=== PATIENT | male | born 1945 | race Two or more races ===

== ENCOUNTER 2025-10-12 10:29 | Inpatient (IN) | payer OTHER, MEDICAID ==
[~2025-10-12] VITALS: Ht 170.2 cm; Wt 87.1 kg
--- NOTE | 2025-10-12 11:11 | ED.PDOC ---
History of Present Illness HPI Comments 80 year old male with PMHx ESRD, HTN, HLD, DM presents to the ED with a chief complaint of clogged Parminder catheter onset 3 days. Patient states he was advised to come to ED due to clogged Parminder catheter after last dialysis was yesterday. Goes to dialysis Sunday, , Sunday, due to holidays he went Sunday, Sunday and Sunday, since Sunday was told catheter was clogged. Denies fever, chills, nausea, vomiting, diarrhea, headache, dizizness, chest pain, shortness of breath. No other symptoms or modifying factors present at this time. Chief Complaint: Tube Replacement Time Seen by MD: 11:00 Reviewed Notes: Medications, Allergies Allergies: Coded Allergies: Tetracycline (Verified Allergy, Severe, 10/12/25) Information Source: Patient, Relative Mode of Arrival: Ambulatory Severity: Moderate Timing: Days Duration: Since onset Prehospital treatment: None Past Medical History PAST MEDICAL HISTORY: DM, ESRD, High Lipids, HTN Surgical History: Denies all surgeries Family History Family History: Reviewed,noncontributory to illness, No family hx of Cancer, No family hx of DM, No family hx of Heart kennedi, No family hx of HTN, No family hx ofKidney kennedi, No family hx of Liver kennedi, No family hx of Lung kennedi, No family hx of Stroke Social History Smoker: Non-Smoker Alcohol: Denies ETOH Use Drugs: Denies Drug Use Lives In: Home Constitutional: denies: chills, diaphoresis, fatigue, fever, malaise, sweats, weakness, others EENTM: denies: blurred vision, double vision, ear bleeding, ear discharge, ear drainage, ear pain, ear ringing, eye pain, eye redness, hearing loss, mouth pain, mouth swelling, nasal discharge, nose bleeding, nose congestion, nose pain, photophobia, tearing, throat pain, throat swelling, voice changes, others Respiratory: denies: cough, hemoptysis, orthopnea, SOB at rest, shortness of breath, SOB with excertion, stridor, wheezing, others Cardiovascular: denies: chest pain, dizzy spells, diaphoresis, Dyspnea on exertion, edema, irregular heart beat, left arm pain, lightheadedness, palpitations, PND, syncope, others Gastrointestinal: denies: abdomen distended, abdominal pain, blood streaked bowels, constipated, diarrhea, dysphagia, difficulty swallowing, hematemesis, m james, nausea, poor appetite, poor fluid intake, rectal bleeding, rectal pain, vomiting, others Genitourinary: denies: burning, dysuria, flank pain, frequency, hematuria, incontinence, penile discharge, penile sore, pain, testicle pain, testicle swelling, urgency, others Neurological: denies: dizziness, fainting, headache, left sided numbness, left sided weakness, numbness, paresthesia, pre-existing deficit, right sided numbness, right sided weakness, seizure, speech problems, tingling, tremors, weakness, others Musculoskeletal: denies: back pain, gout, joint pain, joint swelling, muscle pain, muscle stiffness, neck pain, others Integumetry: denies: bruises, change in color, change in hair/nails, dryness, laceration, lesions, lumps, rash, wounds, others Allergic/Immunocompromised: denies: Difficulty Healing, Frequent Infections, Hives, Itching, others Hematologic/Lymphatic: denies: anemia, blood clots, easy bleeding, easy bruising, swollen glands, others Endocrine: denies: excessive hunger, excessive sweating, excessive thirst, excessive urination, flushing, intolerance to cold, intolerance to heat, unexplained weight gain, unexplained weight loss, others Psychiatric: denies: anxiety, bipolar disorder, depression, hopeless, panic disorder, schizophrenia, sleepless, suicidal, others All Other Systems: Reviewed and Negative Physical Exam General Appearance: Moderate Distress, Normal HEENT: Normal ENT Inspection, Pharynx Normal, TMs Normal Neck: Full Range of Motion, Non-Tender, Normal, Normal Inspection Respiratory: Chest Non-Tender, Lungs Clear, No Accessory Muscle Use, No Respiratory Distress, Normal Breath Sounds Cardiovascular: No Edema, No JVD, No Murmur, No Gallop, Normal Peripheral Pulses, Regular Rate/Rhythm Breast Exam: Deferred Gastrointestinal: No Organomegaly, Non Tender, No Pulsatile Mass, Normal Bowel Sounds, Soft Genitalia: Deferred Pelvic: Deferred Rectal: Deferred Extremities: No calf tenderness, Normal capillary refill, Normal inspection, Normal range of motion, Non-tender, No pedal edema Musculoskeletal : Apperance: Normal Neurologic: Alert, area captain II-XII nml as Tested, No Motor Deficits, Normal Affect, Normal Mood, No Sensory Deficits Cerebellar Function: Normal Reflexes: Normal Skin: Dry, Normal Color, Warm Peripheral Pulses: 3+ Radial (R), 3+ Radial (L) Lymphatic: No Adenopathy Was a procedure done? Was a procedure done?: No Differential Dx Considerations may include: Chronic kidney disease X-Ray, Labs, Meds, VS Vital Signs Date Time Temp Pulse Resp B/P (MAP) Pulse Ox O2 Delivery O2 Flow Rate FiO2 10/12/25 10:31 97.9 102 15 156/76 99 97.9 Lab Test 10/12/25 11:19 Range/Units White Blood Count 7.3 4.4-10.8 10^3/uL Red Blood Count 4.55 4.5-5.90 10^6/uL Hemoglobin 13.2 L 13.5-17.5 g/dL Hematocrit 39.5 L 41.0-53.0 % Mean Corpuscular Volume 86.8 80.0-100.0 fL Mean Corpuscular Hemoglobin 28.9 28.0-32.0 pg Mean Corpuscular Hemoglobin Concent 33.3 32.0-36.0 g/dL Red Cell Distribution Width 15.9 H 11.8-14.3 % Platelet Count 313 140-450 10^3/uL Mean Platelet Volume 7.4 6.9-10.8 fL Neutrophils (%) (Auto) 40.5 37.0-80.0 % Lymphocytes (%) (Auto) 38.4 10.0-50.0 % Monocytes (%) (Auto) 11.3 0.0-12.0 % Eosinophils (%) (Auto) 8.3 H 0.0-7.0 % Basophils (%) (Auto) 1.5 0.0-2.0 % Neutrophils # (Auto) 2.9 1.6-8.6 10 ^3/uL Lymphocytes # (Auto) 2.8 0.4-5.4 10 ^3/uL Monocytes # (Auto) 0.8 0-1.3 10 ^3/uL Eosinophils # (Auto) 0.6 0-0.8 10 ^3/uL Basophils # (Auto) 0.1 0-0.2 10 ^3/uL Nucleated Red Blood Cells 0.0 % Sodium Level 140 136-145 mmol/L Potassium Level 4.6 3.5-5.1 mmol/L Chloride Level 103 98-107 mmol/L Carbon Dioxide Level 25 20-31 mmol/L Anion Gap 12 5-15 Blood Urea Nitrogen Pending Creatinine Pending Glomerular Filtration Rate Calc Pending BUN/Creatinine Ratio Pending Serum Glucose Pending Calcium Level 8.9 8.7-10.4 mg/dL Patient alert. Blood pressure elevated. Came in because of the malfunction of dialysis catheter. Answering questions. Saturation pristine on room air. He is comfortable. Was given clonidine. Explained to the patient. Continue monitoring. [place] [id number] Ph: [phone] DIAGNOSTIC IMAGING Diagnostic Imaging Report : [id number] Signed PATIENT: BERNIE BRAND ACCT: [id number] UNIT: [id number] : 1945 LOC: ER ROOM / BED: / AGE / SEX: 80 / M ADM STATUS: REG ER SERVICE 1101 ORDERING PHYSICIAN: ALFONSO DEWITT MD PROCEDURE(s): CXRP - CHEST PORTABLE REASON: sob ORDER NUMBER(s): [id number], ACCESSION NUMBER(s): [id number] CHEST RADIOGRAPH Indication: sob Technique: Single frontal view of the chest was obtained COMPARISON: None FINDINGS: Lines and Tubes: Tunneled right central venous catheter in satisfactory position. Lungs: Increased interstital prominence. This may represent pulmonary vascular congestion and/or viral pneumonia. Pleura: No effusion. No pneumothorax. Cardiomediastinal contours: Unremarkable Bones: Unremarkable IMPRESSION: Increased pulmonary vascular congestion and/or viral pneumonia. ATED BY: GORDON GUEVARA MD DICTATED DATE/TIME: 10/12/25 1141 SIGNED BY: GORDON GUEVARA MD SIGNED DATE/TIME: 10/12/25 1141 CC: Time of 1ST Reevaluation: 11:30 Reevaluation 1ST: Unchanged Patient Education/Counseling: Diagnosis, Treatment, Prognosis Family Education/Counseling: No Family Present SEPSIS Sepsis Screen Date sepsis recognized/suspect: Oct 12, 2025 Time Sepsis recognized/suspect: 1034 Recent Procedure: No On Antibiotic Therapy: No Respiratory Rate >20: No Heart Rate >90: Yes Temp<36 C (96.8 F) or >38.3 C: No SBP <90 or MAP <65 mmHG: No New Acute Mental Status Change: No Is the patient on CPAP, BIPAP,: No Physician Orders Chest Portable (10/12/25 11:01) Basic Metabolic Panel (10/12/25 11:01) Vital Signs Date Time Temp Pulse Resp B/P (MAP) Pulse Ox O2 Delivery O2 Flow Rate FiO2 10/12/25 10:31 97.9 102 15 156/76 99 97.9 Laboratory Tests Test 10/12/25 11:19 White Blood Count 7.3 10^3/uL (4.4-10.8) Departure 1 Departure Time of Disposition: 11:23 Impression: Primary Impression: Hypertensive urgency Additional Impression: Encounter for dialysis catheter care Disposition: ADMITTED INPATIENT Admit to: Med Surg Condition: Guarded Critical Care Note Critical Care Time?: No Stability Stability form required: No Heart Score Heart Score: Heart Score Response (Comments) Value History N/A 0 EKG N/A 0 Age N/A 0 Risk Factors N/A 0 Troponin N/A 0 Total 0 I personally scribed for ALFONSO DEWITT MD ([email or web address]) on 10/12/25 at 11:11. Electronically submitted by Catalina Sanchez ([email or web address]). I personally scribed for ALFONSO DEWITT MD ([email or web address]) on 10/12/25 at 12:03. Electronically submitted by Catalina Sanchez ([email or web address]). ALFONSO DEWITT MD Oct 12, 2025 11:11
--- NOTE | 2025-10-12 11:43 | DVH ---
CHEST RADIOGRAPH Indication: sob Technique: Single frontal view of the chest was obtained COMPARISON: None FINDINGS: Lines and Tubes: Tunneled right central venous catheter in satisfactory position. Lungs: Increased interstital prominence. This may represent pulmonary vascular congestion and/or viral pneumonia. Pleura: No effusion. No pneumothorax. Cardiomediastinal contours: Unremarkable Bones: Unremarkable IMPRESSION: Increased pulmonary vascular congestion and/or viral pneumonia.
[2025-10-12 11:51] LABS: Hematocrit 39.5 % (41.0-53.0); Hemoglobin 13.2 g/dL (13.5-17.5); Mean Corpuscular Hemoglobin 28.9 pg (28.0-32.0); Mean Corpuscular Volume 86.8 fL (80.0-100.0); Nucleated Red Blood Cells % 0.0 %
[2025-10-12 11:54] LABS: Chloride 103 mmol/L (98-107); Potassium 4.6 mmol/L (3.5-5.1); Sodium 140 mmol/L (136-145)
[2025-10-12 11:56] LABS: Anion Gap 12 (5-15); Calcium 8.9 mg/dL (8.7-10.4); Carbon Dioxide 25 mmol/L (20-31)
[2025-10-12 12:01] LABS: BUN/Creatinine Ratio 8.0 (10.0-20.0)
[2025-10-12 12:14] LABS: Blood Urea Nitrogen 26 mg/dL (9-23); Glucose 257 mg/dL (74-106)
[2025-10-12 13:43] LABS: Urine Protein, UAD 2+ (Negative)
[2025-10-12] MEDS ORDERED: ACETAMINOPHEN 500 MG TAB or CAP PO PRN (16:00)
[2025-10-12] MEDS ORDERED: HYDROcodone-ACET 5/325MG TAB PO PRN (16:00)
[2025-10-12] MEDS ORDERED: DEXTROSE (50%) 50ML SYRG IV PRN (16:00)
[2025-10-12] MEDS: CARVEDILOL 12.5 MG TAB PO ONE (16:00)
--- NOTE | 2025-10-12 16:00 | DVHHPRES ---
History of Present Illness Resident Creating Document: FACUNDO FONG RESIDENT History of Present Illness 80-year-old Fijian-speaking male patient presented to the ER with a chief complaint of a clogged tunneled catheter for hemodialysis. Patient reports that he goes to [facility] for hemodialysis Sunday//Sunday, last hemodialysis yesterday and he was told during the past 2 visits that has a hemodialysis catheter needs to be changed. On my evaluation, patient denies fever, chills, shortness of breaths, nausea vomiting, chest pain. He is tachycardic but sinus. Past medical history: Hypertension, diabetes mellitus type 2, ESRD on HD with [facility] Sunday//Sunday Home medications: Patient can not remember Social history: Denies smoking/drinking/drug use, lives with family Patient seen and examined in ER lobby. Right tunneled catheter noted. Review of Systems Allergies: Coded Allergies: Tetracycline (Verified Allergy, Severe, 10/12/25) Exam Vital Signs Vital Signs Date Time Temp Pulse Resp B/P (MAP) Pulse Ox O2 Delivery O2 Flow Rate FiO2 10/12/25 15:00 97.6 92 16 153/81 (105) 98 97.6 General Appearance: Alert, Oriented X3, Cooperative, No acute distress HEENT: Mucous membr. moist/pink Respiratory: Other (Bilateral crackles heard basilar region) Cardiovascular: Normal S1, Normal S2 Abdominal: Normal bowel sounds, Soft Extremities: Other (Mild swelling 1+ pitting) Skin: No significant lesion Neuro: Normal speech Psych/Mental Status: Mental status NL, Mood NL Labs/Xrays Labs Test 10/12/25 12:40 10/12/25 11:19 Range/Units Urine Color Light-yellow Yellow Urine Clarity Clear Clear Urine pH 7.0 5.0-9.0 Urine Specific [place] 1.016 1.001-1.035 Urine Protein 2+ H Negative Urine Ketones Negative Negative Urine Blood Negative Negative /uL Urine Nitrite Negative Negative Urine Bilirubin Negative Negative Urine Urobilinogen Normal Negative mg/dL Urine Leukocyte Esterase Negative Negative /uL Urine RBC 1 0 - 3 /hpf Urine Microscopic WBC 1 0-3 /HPF Urine Squamous Epithelial Cells Few <5 /hpf Urine Bacteria None seen None Seen /hpf Urine Glucose 1+ H Normal mg/dL White Blood Count 7.3 4.4-10.8 10^3/uL Red Blood Count 4.55 4.5-5.90 10^6/uL Hemoglobin 13.2 L 13.5-17.5 g/dL Hematocrit 39.5 L 41.0-53.0 % Mean Corpuscular Volume 86.8 80.0-100.0 fL Mean Corpuscular Hemoglobin 28.9 28.0-32.0 pg Mean Corpuscular Hemoglobin Concent 33.3 32.0-36.0 g/dL Red Cell Distribution Width 15.9 H 11.8-14.3 % Platelet Count 313 140-450 10^3/uL Mean Platelet Volume 7.4 6.9-10.8 fL Neutrophils (%) (Auto) 40.5 37.0-80.0 % Lymphocytes (%) (Auto) 38.4 10.0-50.0 % Monocytes (%) (Auto) 11.3 0.0-12.0 % Eosinophils (%) (Auto) 8.3 H 0.0-7.0 % Basophils (%) (Auto) 1.5 0.0-2.0 % Neutrophils # (Auto) 2.9 1.6-8.6 10 ^3/uL Lymphocytes # (Auto) 2.8 0.4-5.4 10 ^3/uL Monocytes # (Auto) 0.8 0-1.3 10 ^3/uL Eosinophils # (Auto) 0.6 0-0.8 10 ^3/uL Basophils # (Auto) 0.1 0-0.2 10 ^3/uL Nucleated Red Blood Cells 0.0 % Sodium Level 140 136-145 mmol/L Potassium Level 4.6 3.5-5.1 mmol/L Chloride Level 103 98-107 mmol/L Carbon Dioxide Level 25 20-31 mmol/L Anion Gap 12 5-15 Blood Urea Nitrogen 26 H 9-23 mg/dL Creatinine 3.27 H 0.700-1.30 mg/dL Glomerular Filtration Rate Calc 18 >90 mL/min BUN/Creatinine Ratio 8.0 L 10.0-20.0 Serum Glucose 257 H 74-106 mg/dL Calcium Level 8.9 8.7-10.4 mg/dL SEPSIS Sepsis Screen Date sepsis recognized/suspect: Oct 12, 2025 Time Sepsis recognized/suspect: 1034 Recent Procedure: No On Antibiotic Therapy: No Respiratory Rate >20: No Heart Rate >90: Yes Temp<36 C (96.8 F) or >38.3 C: No SBP <90 or MAP <65 mmHG: No New Acute Mental Status Change: No Is the patient on CPAP, BIPAP,: No Physician Orders Chest Portable (10/12/25 11:01) Vital Signs Date Time Temp Pulse Resp B/P (MAP) Pulse Ox O2 Delivery O2 Flow Rate FiO2 10/12/25 15:00 97.6 92 16 153/81 (105) 98 97.6 10/12/25 12:44 98.2 98 17 146/83 (104) 96 98.2 10/12/25 10:31 97.9 102 15 156/76 99 97.9 Laboratory Tests Test 10/12/25 11:19 White Blood Count 7.3 10^3/uL (4.4-10.8) Assessment/Plan Assessment/Plan Dysfunctional tunneled hemodialysis catheter ESRD on mtylnbfcabmi-[id number]-Hyzkirp//Sunday Diabetic nephropathy Type 2 diabetes mellitus Hypertension Dyslipidemia Plan: Recommendation: Dr. Page Dysfunctional tunneled catheter likely from fibrin sheath versus intradural thrombus. No signs of infection at this time Follow up with Mag and phos, [facility] consulted, PT/INR, blood cultures Consider trial of Alteplase, if catheter remains nonfunctional, consider IR for catheter exchange Patient will be admitted to med surge unit Monitor electrolytes and volume status Strict I&Os Renal diet Heparin for DVT prophylaxis Plan discussed with the patient in which all questions have been answered Case discussed with Dr. Page Plan discussed with: Patient Visit Coding STANDARD RES Billing Provider: MORAIMA MENG MD Date of Service if different f: Oct 12, 2025 Common Visit Codes: 02362-[id number] INP/OBS CARE (HIGH) FACUNDO FONG RESIDENT Oct 12, 2025 16:00
[2025-10-12 16:22] LABS: Alanine Aminotransferase 24 U/L (7-40); Albumin 4.5 g/dL (3.2-4.8); Alkaline Phosphatase 93 U/L (46-116); Magnesium 1.7 mg/dL (1.6-2.6); Total Protein 7.0 g/dL (5.7-8.2)
[2025-10-12 16:29] LABS: Bilirubin, Direct < 0.1 mg/dL (<0.3); Bilirubin, Total 0.2 mg/dL (0.2-1.0)
[2025-10-12] MEDS: InsuLIN REG 1unit/0.01ml Soln (100units/ml) SC SCH (17:00)
[2025-10-12] MEDS: ACCU-CHEK COMFORT CURVE STRIP VI SCH (17:00)
[2025-10-12] MEDS: CATHFLO ACTIVASE (ALTEPLASE) 2 MG VIAL IV ONE (19:50)
[2025-10-12 21:00] VITALS: BP 132/78; PULSE 87; RESP 16; TEMP 98.3; O2SAT 96
[2025-10-12] MEDS: CARVEDILOL 12.5 MG TAB PO SCH (22:46)
[2025-10-12 22:52] VITALS: BP 132/78; PULSE 87; RESP 18; TEMP 98.3; O2SAT 96
[2025-10-13] VITALS (12 sets, daily range): BP systolic 114–172; BP diastolic 61–87; PULSE 68–88; RESP 10–23; TEMP 97.6–98.7; O2SAT 92–97
[2025-10-13 05:32] LABS: Amphetamine Screen, Urine Neg (NEGATIVE); Barbiturate Scree,Urine Neg (NEGATIVE); Benzodiazephine Screen, Urine Neg (NEGATIVE); Cocaine Screen, Urine Neg (NEGATIVE); Opiate Scree,Urine Neg (NEGATIVE); Phencyclidine Screen, Urine Neg (NEGATIVE)
[2025-10-13 05:33] LABS: Cannabinoid Screen, Urine Neg (NEGATIVE)
[2025-10-13] MEDS: LEVOTHYROXINE SODIUM 50 MCG TAB PO SCH (06:40)
[2025-10-13 07:37] LABS: Hematocrit 34.6 % (41.0-53.0); Hemoglobin 11.7 g/dL (13.5-17.5); Mean Corpuscular Hemoglobin 29.4 pg (28.0-32.0); Mean Corpuscular Volume 86.6 fL (80.0-100.0); Nucleated Red Blood Cells % 0.3 %
[2025-10-13 07:43] LABS: INR 1.08 (0.9-1.15); Partial Thromboplastin Time 27.0 SEC (24.5-34.5); Prothrombin Time 11.4 sec (9.3-11.8)
[2025-10-13 07:47] LABS: Alanine Aminotransferase 17 U/L (7-40); Albumin 3.9 g/dL (3.2-4.8); Alkaline Phosphatase 76 U/L (46-116); Anion Gap 11 (5-15); BUN/Creatinine Ratio 9.0 (10.0-20.0); Carbon Dioxide 26 mmol/L (20-31); Chloride 105 mmol/L (98-107); Magnesium 1.8 mg/dL (1.6-2.6); Potassium 4.9 mmol/L (3.5-5.1); Sodium 142 mmol/L (136-145); Total Protein 6.4 g/dL (5.7-8.2)
[2025-10-13 07:48] LABS: Bilirubin, Total 0.2 mg/dL (0.2-1.0); Blood Urea Nitrogen 32 mg/dL (9-23); Calcium 8.5 mg/dL (8.7-10.4); Glucose 113 mg/dL (74-106)
[2025-10-13] MEDS: HEPARIN SODIUM (PORCINE) 5000 UNITS/ML 1ML VIAL ONE (09:43)
[2025-10-13] MEDS: MIDAZOLAM HCL 2MG/2ML 2ml VIAL (1mg/ml) ONE (09:44)
[2025-10-13] MEDS: fentaNYL CITRATE 100 MCG/2 ML VL ONE (09:44)
[2025-10-13] MEDS: LIDOCAINE 2%HCL (LOCAL ANESTH.) INJ 20ML MDV ONE (09:45)
[2025-10-13] MEDS ORDERED: SODIUM CHL 0.9% 1000 ML BAG XX ONE (12:15)
--- NOTE | 2025-10-13 14:44 | DVHINCON2 ---
Date of service: Oct 13, [address] Grimaldo Reason for Consultation End-stage renal disease History of Present Illness 80-year-old patient with significant history of end-stage renal disease requiring hemodialysis on Sunday with last dialysis day before yesterday at [facility], hypertension, hypothyroidism who has had issues with clotting of the dialysis catheter requiring tPA as an outpatient , needing with clogged tunneled dialysis catheter. Laboratory data revealed normal kalemia, hypertension. He denies otherwise fever chills chest pain nausea vomiting. He was tachycardic on admission. Chest x-ray showed mild bowel pulmonary vascular congestion. Past Medical History Hypertension, end-stage renal disease, hypothyroidism Past Surgical History Dialysis dialysis catheter placement Allergies: Coded Allergies: Tetracycline (Verified Allergy, Severe, 10/12/25) Current Medications Current Medications Medications (Trade) Dose Ordered Sig/Chata Route PRN Reason Start Time Stop Time Status Last Admin Acetaminophen (Tylenol Tablet Or Capsule) 500 mg Q4HPRN PRN PO MILD PAIN (1-3 PAIN SCALE) 10/12/25 16:00 Acetaminophen/ Hydrocodone Bitart ([place] 5/325MG Tab) 1 tab Q4HPRN PRN PO SEVERE PAIN (7-10 PAIN SCALE) 10/12/25 16:00 Diagnostic Test (Pha) (Accu-Chek Comfort Curve T) 1 strip ACHS 10/12/25 17:00 10/13/25 11:29 Insulin Human Regular (InsuLIN R) ACHS SC 10/12/25 17:00 10/13/25 11:31 Dextrose 50 ml UD PRN IV Blood Sugar LESS THAN 60 10/12/25 16:00 Levothyroxine Sodium (Synthroid Tablet) 50 mcg QAM@0600 PO 10/13/25 06:00 10/13/25 06:40 Carvedilol (Coreg Tablet) 12.5 mg Q12HR PO 10/12/25 22:00 10/13/25 11:32 Social History He denies smoking alcohol or drug abuse Review of Systems HEENT: Oral mucosa dry Neck no JVD Cardiovascular: Denies for chest pain denies orthopnea or PND Respiratory: Denies cough or shortness of breath Gastrointestinal: Denies for nausea vomiting Musculoskeletal: Denies myalgias Neurological: Denies focal weakness Dermatological: Denies any rash The rest of the review of systems were reviewed pertinent positives and pertinent negatives are as per HPI up to 12 points review of systems H&P Exam Vital Signs/I&O Vital Sign Date Time Temp Pulse Resp B/P (MAP) Pulse Ox O2 Delivery O2 Flow Rate FiO2 10/13/25 12:58 97.9 72 18 148/87 (107) 96 97.9 10/12/25 22:52 Room Air* 0 21 Intake and Output 10/12/25 10/13/25 19:00 07:00 Intake Total 0 ml Balance 0 ml Intake Oral 0 ml # Voids 2 Physical Exam HEENT: No evidence of JVD, no oral ulcers. Pulmonary: Lungs are clear on auscultation bilaterally Cardiovascular S1-S2, no S3 or S4 Abdomen: Bowel sounds positive, soft no rebound tenderness Skin: No rash Neurological: Alert, oriented, no focal weakness HD catheter right upper chest tunneled Labs/Diagnostic Data Labs/Diagnostic Data Laboratory Tests Test 10/13/25 11:28 10/13/25 06:38 10/13/25 06:11 10/13/25 04:44 Range/Units POC Glucose 239 H 122 H 70-106 mg/dl White Blood Count 6.2 4.4-10.8 10^3/uL Red Blood Count 3.99 L 4.5-5.90 10^6/uL Hemoglobin 11.7 L 13.5-17.5 g/dL Hematocrit 34.6 #L 41.0-53.0 % Mean Corpuscular Volume 86.6 80.0-100.0 fL Mean Corpuscular Hemoglobin 29.4 28.0-32.0 pg Mean Corpuscular Hemoglobin Concent 33.9 32.0-36.0 g/dL Red Cell Distribution Width 16.1 H 11.8-14.3 % Platelet Count 276 140-450 10^3/uL Mean Platelet Volume 7.5 6.9-10.8 fL Neutrophils (%) (Auto) 48.4 37.0-80.0 % Lymphocytes (%) (Auto) 25.6 10.0-50.0 % Monocytes (%) (Auto) 15.0 H 0.0-12.0 % Eosinophils (%) (Auto) 9.9 H 0.0-7.0 % Basophils (%) (Auto) 1.1 0.0-2.0 % Neutrophils # (Auto) 3.0 1.6-8.6 10 ^3/uL Lymphocytes # (Auto) 1.6 0.4-5.4 10 ^3/uL Monocytes # (Auto) 0.9 0-1.3 10 ^3/uL Eosinophils # (Auto) 0.6 0-0.8 10 ^3/uL Basophils # (Auto) 0.1 0-0.2 10 ^3/uL Nucleated Red Blood Cells 0.3 % Prothrombin Time 11.4 9.3-11.8 sec Prothrombin Time INR 1.08 0.9-1.15 Activated Partial Thromboplast Time 27.0 24.5-34.5 SEC Sodium Level 142 136-145 mmol/L Potassium Level 4.9 3.5-5.1 mmol/L Chloride Level 105 98-107 mmol/L Carbon Dioxide Level 26 20-31 mmol/L Anion Gap 11 5-15 Blood Urea Nitrogen 32 H 9-23 mg/dL Creatinine 3.55 H 0.700-1.30 mg/dL Glomerular Filtration Rate Calc 17 >90 mL/min BUN/Creatinine Ratio 9.0 L 10.0-20.0 Serum Glucose 113 #H 74-106 mg/dL Hemoglobin A1c 7.7 H <5.7 % A1C Calcium Level 8.5 L 8.7-10.4 mg/dL Magnesium Level 1.8 1.6-2.6 mg/dL Total Bilirubin 0.2 0.2-1.0 mg/dL Aspartate Amino Transferase (AST) 19 13-40 U/L Alanine Aminotransferase (ALT) 17 7-40 U/L Alkaline Phosphatase 76 46-116 U/L Total Protein 6.4 5.7-8.2 g/dL Albumin 3.9 3.2-4.8 g/dL Vitamin B12 Level 492 211-911 pg/mL Vitamin D 25-Hydroxy 44.7 30.0-100 ng/mL Thyroid Stimulating Hormone (TSH) 4.80 H 0.55-4.78 uIU/mL Urine Opiates Screen Neg NEGATIVE Urine Fentanyl Screen Neg NEGATIVE Urine Barbiturates Screen Neg NEGATIVE Urine Phencyclidine Screen Neg NEGATIVE Urine Amphetamines Screen Neg NEGATIVE Urine Benzodiazepines Screen Neg NEGATIVE Urine Cocaine Screen Neg NEGATIVE Urine Cannabinoids Screen Neg NEGATIVE Test 10/12/25 22:44 10/12/25 19:20 10/12/25 16:49 10/12/25 12:40 Range/Units POC Glucose 184 H 219 H 70-106 mg/dl Lactic Acid Level 2.0 0.4-2.0 mmol/L Urine Color Light-yellow Yellow Urine Clarity Clear Clear Urine pH 7.0 5.0-9.0 Urine Specific [place] 1.016 1.001-1.035 Urine Protein 2+ H Negative Urine Ketones Negative Negative Urine Blood Negative Negative /uL Urine Nitrite Negative Negative Urine Bilirubin Negative Negative Urine Urobilinogen Normal Negative mg/dL Urine Leukocyte Esterase Negative Negative /uL Urine RBC 1 0 - 3 /hpf Urine Microscopic WBC 1 0-3 /HPF Urine Squamous Epithelial Cells Few <5 /hpf Urine Bacteria None seen None Seen /hpf Urine Glucose 1+ H Normal mg/dL Test 10/12/25 11:19 Range/Units White Blood Count 7.3 4.4-10.8 10^3/uL Red Blood Count 4.55 4.5-5.90 10^6/uL Hemoglobin 13.2 L 13.5-17.5 g/dL Hematocrit 39.5 L 41.0-53.0 % Mean Corpuscular Volume 86.8 80.0-100.0 fL Mean Corpuscular Hemoglobin 28.9 28.0-32.0 pg Mean Corpuscular Hemoglobin Concent 33.3 32.0-36.0 g/dL Red Cell Distribution Width 15.9 H 11.8-14.3 % Platelet Count 313 140-450 10^3/uL Mean Platelet Volume 7.4 6.9-10.8 fL Neutrophils (%) (Auto) 40.5 37.0-80.0 % Lymphocytes (%) (Auto) 38.4 10.0-50.0 % Monocytes (%) (Auto) 11.3 0.0-12.0 % Eosinophils (%) (Auto) 8.3 H 0.0-7.0 % Basophils (%) (Auto) 1.5 0.0-2.0 % Neutrophils # (Auto) 2.9 1.6-8.6 10 ^3/uL Lymphocytes # (Auto) 2.8 0.4-5.4 10 ^3/uL Monocytes # (Auto) 0.8 0-1.3 10 ^3/uL Eosinophils # (Auto) 0.6 0-0.8 10 ^3/uL Basophils # (Auto) 0.1 0-0.2 10 ^3/uL Nucleated Red Blood Cells 0.0 % Sodium Level 140 136-145 mmol/L Potassium Level 4.6 3.5-5.1 mmol/L Chloride Level 103 98-107 mmol/L Carbon Dioxide Level 25 20-31 mmol/L Anion Gap 12 5-15 Blood Urea Nitrogen 26 H 9-23 mg/dL Creatinine 3.27 H 0.700-1.30 mg/dL Glomerular Filtration Rate Calc 18 >90 mL/min BUN/Creatinine Ratio 8.0 L 10.0-20.0 Serum Glucose 257 H 74-106 mg/dL Calcium Level 8.9 8.7-10.4 mg/dL Phosphorus Level 3.8 2.4-5.1 mg/dL Magnesium Level 1.7 1.6-2.6 mg/dL Total Bilirubin 0.2 0.2-1.0 mg/dL Direct Bilirubin < 0.1 <0.3 mg/dL Aspartate Amino Transferase (AST) 24 13-40 U/L Alanine Aminotransferase (ALT) 24 7-40 U/L Alkaline Phosphatase 93 46-116 U/L Total Protein 7.0 5.7-8.2 g/dL Albumin 4.5 3.2-4.8 g/dL Thyroid Stimulating Hormone (TSH) 5.60 H 0.55-4.78 uIU/mL Microbiology Date/Time Source Procedure Growth Status 10/13/25 00:20 Nose MRSA Screen - Final Complete Chest x-ray with pulmonary vascular congestion Assessment Assessment: 1. End-stage renal disease on hemodialysis TTS 2. Malfunction of the right upper chest tunneled dialysis catheter. 3. Pulmonary vascular congestion 4. Hypertension 5. Hypothyroidism Plan: Exchange hemodialysis catheter by IR appreciated. Dialysis to make sure dialysis catheter is working. Resume antihypertensive meds Continue levothyroxine Fluid restriction less than 1 L per day Patient can be discharged after hemodialysis today. Thank you very much Plan discussed with: Patient ANNALISA MEDLEY MD Oct 13, 2025 14:44
--- NOTE | 2025-10-13 17:43 | DVHDSRES ---
Discharge Summary Date of Admission Resident Creating Document: LEX PARRA RESIDENT Oct 12, 2025 at 15:59 Date of Discharge: Oct 13, 2025 Labs/Diagnostic Data: Laboratory Results Test 10/13/25 11:28 10/13/25 06:38 10/13/25 04:44 10/12/25 16:49 POC Glucose 239 mg/dl (70-106) White Blood Count 6.2 10^3/uL (4.4-10.8) Red Blood Count 3.99 10^6/uL (4.5-5.90) Hemoglobin 11.7 g/dL (13.5-17.5) Hematocrit 34.6 % (41.0-53.0) Mean Corpuscular Volume 86.6 fL (80.0-100.0) Mean Corpuscular Hemoglobin 29.4 pg (28.0-32.0) Mean Corpuscular Hemoglobin Concent 33.9 g/dL (32.0-36.0) Red Cell Distribution Width 16.1 % (11.8-14.3) Platelet Count 276 10^3/uL (140-450) Mean Platelet Volume 7.5 fL (6.9-10.8) Neutrophils (%) (Auto) 48.4 % (37.0-80.0) Lymphocytes (%) (Auto) 25.6 % (10.0-50.0) Monocytes (%) (Auto) 15.0 % (0.0-12.0) Eosinophils (%) (Auto) 9.9 % (0.0-7.0) Basophils (%) (Auto) 1.1 % (0.0-2.0) Neutrophils # (Auto) 3.0 10 ^3/uL (1.6-8.6) Lymphocytes # (Auto) 1.6 10 ^3/uL (0.4-5.4) Monocytes # (Auto) 0.9 10 ^3/uL (0-1.3) Eosinophils # (Auto) 0.6 10 ^3/uL (0-0.8) Basophils # (Auto) 0.1 10 ^3/uL (0-0.2) Nucleated Red Blood Cells 0.3 % Prothrombin Time 11.4 sec (9.3-11.8) Prothrombin Time INR 1.08 (0.9-1.15) Activated Partial Thromboplast Time 27.0 SEC (24.5-34.5) Sodium Level 142 mmol/L (136-145) Potassium Level 4.9 mmol/L (3.5-5.1) Chloride Level 105 mmol/L (98-107) Carbon Dioxide Level 26 mmol/L (20-31) Anion Gap 11 (5-15) Blood Urea Nitrogen 32 mg/dL (9-23) Creatinine 3.55 mg/dL (0.700-1.30) Glomerular Filtration Rate Calc 17 mL/min (>90) BUN/Creatinine Ratio 9.0 (10.0-20.0) Serum Glucose 113 mg/dL (74-106) Hemoglobin A1c 7.7 % A1C (<5.7) Calcium Level 8.5 mg/dL (8.7-10.4) Magnesium Level 1.8 mg/dL (1.6-2.6) Total Bilirubin 0.2 mg/dL (0.2-1.0) Aspartate Amino Transferase (AST) 19 U/L (13-40) Alanine Aminotransferase (ALT) 17 U/L (7-40) Alkaline Phosphatase 76 U/L (46-116) Total Protein 6.4 g/dL (5.7-8.2) Albumin 3.9 g/dL (3.2-4.8) Vitamin B12 Level 492 pg/mL (211-911) Vitamin D 25-Hydroxy 44.7 ng/mL (30.0-100) Thyroid Stimulating Hormone (TSH) 4.80 uIU/mL (0.55-4.78) Urine Opiates Screen Neg (NEGATIVE) Urine Fentanyl Screen Neg (NEGATIVE) Urine Barbiturates Screen Neg (NEGATIVE) Urine Phencyclidine Screen Neg (NEGATIVE) Urine Amphetamines Screen Neg (NEGATIVE) Urine Benzodiazepines Screen Neg (NEGATIVE) Urine Cocaine Screen Neg (NEGATIVE) Urine Cannabinoids Screen Neg (NEGATIVE) Lactic Acid Level 2.0 mmol/L (0.4-2.0) Test 10/12/25 12:40 10/12/25 11:19 Urine Color Light-yellow (Yellow) Urine Clarity Clear (Clear) Urine pH 7.0 (5.0-9.0) Urine Specific [place] 1.016 (1.001-1.035) Urine Protein 2+ (Negative) Urine Ketones Negative (Negative) Urine Blood Negative /uL (Negative) Urine Nitrite Negative (Negative) Urine Bilirubin Negative (Negative) Urine Urobilinogen Normal mg/dL (Negative) Urine Leukocyte Esterase Negative /uL (Negative) Urine RBC 1 /hpf (0 - 3) Urine Microscopic WBC 1 /HPF (0-3) Urine Squamous Epithelial Cells Few /hpf (<5) Urine Bacteria None seen /hpf (None Seen) Urine Glucose 1+ mg/dL (Normal) Phosphorus Level 3.8 mg/dL (2.4-5.1) Direct Bilirubin < 0.1 mg/dL (<0.3) Other Laboratory Tests 10/13/25 06:38 Brief Hx & Hospital Course: 80-year-old Bengali-speaking male patient presented to the ER with a chief complaint of a clogged tunneled catheter for hemodialysis. Patient reports that he goes to [facility] for hemodialysis Sunday//Sunday, last hemodialysis yesterday and he was told during the past 2 visits that has a hemodialysis catheter needs to be changed. On my evaluation, patient denies fever, chills, shortness of breaths, nausea vomiting, chest pain. He is tachycardic but sinus. Past medical history: Hypertension, diabetes mellitus type 2, ESRD on HD with [facility] Sunday//Sunday Home medications: Patient can not remember Social history: Denies smoking/drinking/drug use, lives with family Patient seen and examined in ER lobby. Right tunneled catheter noted. Hospital course: Patient admitted due to malfunction tunnel catheter for HD. Patient currently on hemodialysis TTS and followed with [facility] nephrology. X- ray chest shows increased pulmonary vasculature congestion. Exchange hemodialysis catheter by IR done on 10/13/2025. Nephrology consult appreciated and recommended dialysis to make sure dialysis catheter is working, resume antihypertensive medication and fluid restriction 1 L per day. Patient seen and evaluated in bedside and during examination on 10/13/2025, patient denies any fever, SOB, chest pain, headache, cough or any focal weakness. Patient advised to continue hemodialysis as scheduled resume home medication. Patient is hemodynamically stable for discharge. Patient has received maximum benefit from inpatient treatment. Time was given to answer patient's questions and concerns in layman terms and explained by RN. Patient verbalized understanding and agreed with treatment and follow-up. Patient was recommended to return to ER if he experiences any worsening symptoms not limited to current symptoms. Follow-up with PCP and outpatient continuity clinic Sunday morning within 2 weeks after discharge. Follow-up outpatient private Nephrology. Physical examination Constitutional: No: Fever, Chills, Sweats, Weakness, Malaise, Other Eyes: No: Pain, Vision change, Conjunctivae inflammation, Eyelid inflammation, Other, Redness ENT: No: Ear pain, Ear discharge, Nose pain, Nose discharge, Nose congestion, Mouth pain, Mouth swelling, Throat pain, Throat swelling, Other Respiratory: Shortness of breath; No: Cough, Dry, SOB with excertion, Wheezing, Hemoptysis, tunneled catheter in place Cardiovascular: No: Chest Pain, Palpitations, Orthopnea, Paroxysmal Noc. Dyspnea, Edema, Lt Headedness, Other Gastrointestinal: No: Nausea, Vomiting, Abdominal Pain, Diarrhea, Constipation, Melena, Hematochezia, Other Genitourinary: No Dysuria, No Frequency, No Incontinence, No Hematuria, No Retention, No Other Musculoskeletal: No: other, neck pain, shoulder pain, arm pain, back pain, hand pain, leg pain, foot pain Skin: No: Rash, Lesions, Jaundice, Bruising, Other Neurological: No: Weakness, Numbness, Incoordination, Change in speech, Confusion, Seizures, Other More than 23 minute spent with patient. Case discussed with patient, , nurse and Dr. Mancini. Operations or Procedures ORDERING PHYSICIAN: ALFONSO DEWITT MD PROCEDURE(s): CXRP - CHEST PORTABLE REASON: sob ORDER NUMBER(s): [id number], ACCESSION NUMBER(s): [id number] CHEST RADIOGRAPH Indication: sob Technique: Single frontal view of the chest was obtained COMPARISON: None FINDINGS: Lines and Tubes: Tunneled right central venous catheter in satisfactory position. Lungs: Increased interstital prominence. This may represent pulmonary vascular congestion and/or viral pneumonia. Pleura: No effusion. No pneumothorax. Cardiomediastinal contours: Unremarkable Bones: Unremarkable IMPRESSION: Increased pulmonary vascular congestion and/or viral pneumonia. 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 Patient was counseled about treatment plan, medications, possible side effects, patientverbalized understanding. All questions were answered to the best of my ability. This discharge took greater then 30 minutes in planning, reviewing documentation, counseling the patient, and discussing with other team members." ASSESSMENT ASSESSMENT Assessment Visit Coding STANDARD RES Billing Provider: CELESTE MANCINI MD Date of Service if different f: Oct 13, 2025 Common Visit Codes: 01913-EQB/OBS DISCH DAY >30min LEX PARRA RESIDENT Oct 13, 2025 17:43 CELESTE MANCINI MD Oct 14, 2025 14:48
[2025-10-14] VITALS (7 sets, daily range): BP systolic 132–148; BP diastolic 70–89; PULSE 70–80; RESP 17–18; TEMP 36.6; O2SAT 94–96
--- NOTE | 2025-10-14 08:56 | DVH ---
XY Insertion of Venous Cath, HISTORY: HD CATH PROCEDURE: Informed consent was obtained. The patient was placed supine on the interventional table. A limited localization ultrasound of the right neck base was obtained. The right neck base and upper chest were prepped with chlorhexidine which was allowed to dry and draped in the usual sterile fashion. Time out was performed. IV sedation was administered. The skin and the soft tissues were infiltrated with 1% Lidocaine. The old tunneled hemodialysis catheter cuff was released with blunt dissection. A glide wire was placed into the IVC through the old tunneled dialysis catheter. A new 14.5 [place] Path, 23 cm long hemodialysis catheter was advanced through the tunneled tract. The catheter tip position was confirmed with fluoroscopy. There was satisfactory flow in both lumens. The catheter lumens were flushed with saline and heparin was left indwelling in the catheter. A post-procedure image of the chest was obtained. The neck incision site was closed with a Vicryl suture and dressed marian rilely. The catheter was sutured at the skin surface and exit site also dressed sterilely. No immediate complication was identified. Air Kerma 3 mGy FLUOROSCOPY TIME: 1.0 minutes. SEDATION: Dr. Chris Calloway was personally responsible for the administration of moderate sedation during the procedure performed, including the use of an independent trained observer who had no other duties during the procedure. The drugs utilized were IV fentanyl and versed (see nursing log for details). The total time of supervision by the attending physician was approximately 20 minutes. FINDINGS: Widely patent right IJV. Post procedure image demonstrates smooth course of the hemodialysis catheter with the tip in the right atrium. IMPRESSION: Exchange of 14.5 polish Hon[address] Path, 23 cm long hemodialysis catheter through right internal jugular vein. Plan: Please contact IR for removal when no longer needed.
--- NOTE | 2025-10-14 15:28 | DVHPN2 ---
Progress Note - Dictate Date Seen: Oct 14, 2025 Medical Necessity Reason Pt with a Central, PICC or Fol: Yes Subjective Patient is feeling well no acute problems at this time vital signs Vital Sign Date Time Temp Pulse Resp B/P (MAP) Pulse Ox O2 Delivery O2 Flow Rate FiO2 10/14/25 12:30 97.2 74 18 134/77 (96) 96 97.2 10/14/25 08:00 Room Air* 0 21 Total Intake and Output 10/13/25 10/13/25 10/14/25 15:00 23:00 07:00 Intake Total 740 ml 800 ml Balance 740 ml 800 ml medications Current Medications Medications Dose Ordered Sig/Chata Route Start Time Stop Time Status Last Admin Dose Admin Acetaminophen 500 mg Q4HPRN PRN PO 10/12/25 16:00 Acetaminophen/ Hydrocodone Bitart 1 tab Q4HPRN PRN PO 10/12/25 16:00 Diagnostic Test (Pha) 1 strip ACHS 10/12/25 17:00 10/14/25 11:10 1 STRIP Insulin Human Regular ACHS SC 10/12/25 17:00 10/14/25 11:09 4 UNITS Dextrose 50 ml UD PRN IV 10/12/25 16:00 Levothyroxine Sodium 50 mcg QAM@0600 PO 10/13/25 06:00 10/13/25 06:40 50 MCG Carvedilol 12.5 mg Q12HR PO 10/12/25 22:00 10/14/25 09:32 12.5 MG Atorvastatin Calcium 40 mg HS PO 10/14/25 22:00 objective HEENT: No evidence of JVD, no oral ulcers. Pulmonary: Lungs are clear on auscultation bilaterally Cardiovascular S1-S2, no S3 or S4 Abdomen: Bowel sounds positive, soft no rebound tenderness Skin: No rash Neurological: Alert, oriented, no focal weakness HD catheter right upper chest no issues laboratory and microbiology Laboratory Tests 10/13/25 06:38 Test 10/13/25 06:38 Range/Units Serum Glucose 113 #H 74-106 mg/dL Assessment/Plan Assessment: 1. End-stage renal disease on hemodialysis TTS 2. Malfunction of the right upper chest tunneled dialysis catheter. 3. Pulmonary vascular congestion 4. Hypertension 5. Hypothyroidism Plan: Dialysis catheter was exchanged yesterday. Dialysis today Resume antihypertensive meds Continue levothyroxine Fluid restriction less than 1 L per day Discharge home after dialysis today. Thank you very much Plan discussed with: Patient ANNALISA MEDLEY MD Oct 14, 2025 15:28
--- NOTE | 2025-10-14 16:30 | DVHPNRES ---
Progress Note Date Seen: Oct 14, 2025 Resident Creating Document: LEX PARRA RESIDENT Medical Necessity Reason Pt with a Central, PICC or Fol: Yes Subjective Review of Systems This is a 80-year-old male with a Swedish speaking past medical history of HTN, dm 2, ESRD on HD-TTS ([facility] ) came to ER with malfunction right-sided tunnel catheter. In ER patient become tachycardic but sinus rhythm. Currently patient denies any fever, SOB, chest pain, headache, cough, abdominal pain, dysuria or any other acute distress. Tunnel catheter changed by IR on 10/13/2025. Site dry and no oozing or active bleeding noted. Past medical history: As above Surgical history: Nothing contributory Family history: Nothing contributory Social history: Denies smoking/drinking/drug use, lives with family PCP: Unable to recall name Home medication: Carvedilol, rosuvastatin Patient seen and evaluated in bedside today. Catheter site dry and no active discharge or bleeding noted. Patient medically stable, discharge after hemodialysis today. Objective vital signs Vital Sign Date Time Temp Pulse Resp B/P (MAP) Pulse Ox O2 Delivery O2 Flow Rate FiO2 10/14/25 12:30 97.2 74 18 134/77 (96) 96 97.2 10/14/25 08:00 Room Air* 0 21 Total Intake and Output 10/13/25 10/13/25 10/14/25 15:00 23:00 07:00 Intake Total 740 ml 800 ml Balance 740 ml 800 ml medications Current Medications Medications Dose Ordered Sig/Chata Route Start Time Stop Time Status Last Admin Dose Admin Acetaminophen 500 mg Q4HPRN PRN PO 10/12/25 16:00 Acetaminophen/ Hydrocodone Bitart 1 tab Q4HPRN PRN PO 10/12/25 16:00 Diagnostic Test (Pha) 1 strip ACHS 10/12/25 17:00 10/14/25 11:10 1 STRIP Insulin Human Regular ACHS SC 10/12/25 17:00 10/14/25 11:09 4 UNITS Dextrose 50 ml UD PRN IV 10/12/25 16:00 Levothyroxine Sodium 50 mcg QAM@0600 PO 10/13/25 06:00 10/13/25 06:40 50 MCG Carvedilol 12.5 mg Q12HR PO 10/12/25 22:00 10/14/25 09:32 12.5 MG Atorvastatin Calcium 40 mg HS PO 10/14/25 22:00 Examination General Appearance: Alert, Oriented X3, Cooperative, No acute distress HEENT: Mucous membr. moist/pink Respiratory: Occasional crackles bilateral basal area, right-sided tunnel catheter in place Cardiovascular: Normal S1, Normal S2 Abdominal: Normal bowel sounds, Soft Extremities: Other (Mild swelling 1+ pitting) Skin: No significant lesion Neuro: Normal speech Psych/Mental Status: Mental status NL, Mood NL laboratory and microbiology Laboratory Tests 10/13/25 06:38 Test 10/13/25 06:38 Range/Units Serum Glucose 113 #H 74-106 mg/dL Microbiology Date/Time Source Procedure Growth Status 10/13/25 00:20 Nose MRSA Screen - Final Complete 10/12/25 16:49 Blood Blood Culture - Preliminary NO GROWTH AFTER 24 HOURS OF INCUBATION. 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 23 minute spent with patient. Discussed with Dr. Henry Plan discussed with: Patient, Other (Nurse) My Orders My Orders Orders - LEX PARRA Procedure Category Date Status Time Discharge DISCHARGE 10/13/25 Transmitted 18:45 Atorvastatin (Lipitor) PHA 10/14/25 In Process 22:00 Insertion Of Venous XY 10/13/25 Resulted Cath 08:23 Discharge DISCHARGE 10/14/25 Transmitted 15:08 Visit Coding STANDARD RES Billing Provider: CELESTE HENRY MD Date of Service if different f: Oct 14, 2025 LEX PARRA Oct 14, 2025 16:30
[2025-10-14] MEDS ORDERED: HEPARIN 1,000 UNITS/ml 1ML VIAL IV ONE (17:30)
[2025-10-14] MEDS ORDERED: HEPARIN SODIUM (PORCINE) 5000 UNITS/ML 1ML VIAL IV ONE (18:00)
[2025-10-14] MEDS ORDERED: ATORVASTATIN 20 MG TAB PO SCH (22:00)
== END 2025-10-14 19:45 | disposition home or self-care (01) | DRG 674 ==
LOC: ER 10:35 → OVERFLOW 15:59 → WEST WING 16:01
PROVIDERS: ADMIT Student in an Organized Health Care Education/Training Program; ATTEND Student in an Organized Health Care Education/Training Program
PROC: 0JH63XZ Insertion of Tunneled Vascular Access Device into Chest Subcutaneous Tissue and Fascia, Percutaneous Approach (ICD-10-PCS; principal; 2025-10-13)
PROC: 02H633Z Insertion of Infusion Device into Right Atrium, Percutaneous Approach (ICD-10-PCS; 2025-10-13)
PROC: B5181ZA Fluoroscopy of Superior Vena Cava using Low Osmolar Contrast, Guidance (ICD-10-PCS; 2025-10-13)
PROC: B548ZZA Ultrasonography of Superior Vena Cava, Guidance (ICD-10-PCS; 2025-10-13)
DX: T82.41XA Breakdown (mechanical) of vascular dialysis catheter, initial encounter (principal); I12.0 Hypertensive chronic kidney disease with stage 5 chronic kidney disease or end stage renal disease; I16.0 Hypertensive urgency; N18.6 End stage renal disease; Z99.2 Dependence on renal dialysis; E11.21 Type 2 diabetes mellitus with diabetic nephropathy; E03.9 Hypothyroidism, unspecified; E11.22 Type 2 diabetes mellitus with diabetic chronic kidney disease; E78.5 Hyperlipidemia, unspecified; Y84.8 Other medical procedures as the cause of abnormal reaction of the patient, or of later complication, without mention of misadventure at the time of the procedure; R09.89 Other specified symptoms and signs involving the circulatory and respiratory systems; Z88.8 Allergy status to other drugs, medicaments and biological substances; Y92.89 Other specified places as the place of occurrence of the external cause; Z79.899 Other long term (current) drug therapy
CPT/HCPCS: 36415; 36558; 71045; 77001; 80048; 80053; 80076; 80307; 81001; 82306; 82607; 82962; 83036; 83605; 83735; 84100; 84443; 85025; 85610; 85730; 87040; 87081; 90935; 96372; 96374; 99152; G0378; J1815; J2250